=== PATIENT | male | born 1965 | race Caucasian/White ===

== ENCOUNTER 2020-09-27 11:38 | Emergency (ER) | payer MEDICARE, MEDICAID ==
[~2020-09-27] VITALS: Ht 190.5 cm; Wt 95.3 kg
[2020-09-27] MEDS ORDERED: FLONASE ALLERG9.9 ML NAS (12:22)
[2020-09-27] MEDS ORDERED: CYMBALTA60 MG PO (12:22)
[2020-09-27] MEDS ORDERED: NAPROSYN500 MG PO (12:35)
[2020-09-27] MEDS ORDERED: PENICILLIN V P500 MG PO (12:35)
== END 2020-09-27 12:42 | disposition home or self-care (01) ==
LOC: ED 11:38
DX: K04.7 Periapical abscess without sinus (principal); F17.200 Nicotine dependence, unspecified, uncomplicated
CPT/HCPCS: 99282